=== PATIENT | male | born 1945 | race Caucasian/White ===

== ENCOUNTER 2017-03-27 11:30 | Day surgery (SDC) | payer OTHER, BC ==
[~2017-03-27] VITALS: Ht 185.4 cm; Wt 103.0 kg
[~2017-03-27 11:30] MED LIST: ASPIR 8181 M1 PO; COREG25 M1 PO; DELTASONE20 M1 PO; DIGITEK250 MC2 PO; HUMALOG100 UNIT/1 SC; HUMULIN N100 UNITS/ SC; LASIX20 MG PO; LORCET 5-325 M1 EACH PO; PREDNISONE20 MG PO; PRINIVIL10 MG PO; PROTONIX40 MG PO; ULTRAM50 MG PO; XANAX0.5 MG PO; ZYRTEC10 M3 PO
[2017-03-27 12:20] LABS: HEMATOCRIT 39.8 % (38.0-50.0); MCH 23.7 PG (29.0-34.0); MCHC 31.4 G/DL (30.0-36.0); MCV 75.4 FL (86-99); MEAN PLAT.VOLUME 10.1 uM^3 (9.0-12.4); PLATELET COUNT 222 K/uL (156-360); RBC DIS.WIDTH-CV 21.8 % (11.8-14.6); RBC DIS.WIDTH-SD 57.6 % (39-53); RED BLOOD COUNT 5.28 M/uL (4.00-5.50); WHITE BLOOD COUNT 14.9 K/uL (4.1-10.2)
[2017-03-27 12:48] LABS: ANION GAP 7 MEQ/L (2-14); CHLORIDE 100 MEQ/L (99-109); GFR ESTIMATE (CALCULATED) 46 mL/min/; GLUCOSE 44 mg/dL (70-99); POTASSIUM 4.4 MEQ/L (3.7-5.4); SAMPLE HEMOLYSIS CHECK 0; SAMPLE ICTERIC CHECK 0; SAMPLE LIPEMIA CHECK 0; SODIUM 139 MEQ/L (136-147); UREA NITROGEN (BUN) 38 mg/dL (9-23)
[2017-03-27 13:03] LABS: POINT-OF-CARE METER ID UU13113694
[2017-03-27 15:08] LABS: POINT-OF-CARE METER ID UU13113675
[2017-03-27 15:13] LABS: POINT-OF-CARE METER ID UU13113694
[2017-03-27] MEDS ORDERED: NORCO 5/3251 TABLET PO (15:29)
[2017-03-27] MEDS ORDERED: ZYVOX600 MG PO (15:29)
[2017-03-27 16:01] VITALS: BP 126/76
[2017-03-27 16:41] VITALS: BP 120/70
== END 2017-03-27 16:49 | disposition home or self-care (01) ==
LOC: SDC 11:30
PROVIDERS: Surgery
DX: M86.8X7 Other osteomyelitis, ankle and foot (principal); E11.69 Type 2 diabetes mellitus with other specified complication; M31.6 Other giant cell arteritis; I49.9 Cardiac arrhythmia, unspecified; I48.91 Unspecified atrial fibrillation; K21.0 Gastro-esophageal reflux disease with esophagitis; Z79.4 Long term (current) use of insulin
CPT/HCPCS: 80048; 82948; 85027; 88305; 88311; 93005; J2250; J3010; J3370; S0020